=== PATIENT | female | born 1995 | race African-American/Black ===

== ENCOUNTER 2021-10-22 17:54 | Emergency (ER) | payer SELFPAY ==
[~2021-10-22] VITALS: Ht 160 cm; Wt 58.0 kg
[2021-10-22] MEDS ORDERED: HYDROMORPHONE HCL 4MG TABLET PO ONE (18:45)
[2021-10-22] MEDS ORDERED: MORPHINE SULFATE 4 MG/ML CPJ (NOT FOR IM USE) IV NR (18:45)
[2021-10-22] MEDS ORDERED: MORPHINE SULFATE 4 MG/ML CPJ (NOT FOR IM USE) IV ONE ×2 (18:45→23:45)
[2021-10-22] MEDS ORDERED: SODIUM CHLORIDE 0.9% 1,000 ML IV ONE (18:45)
[2021-10-22 19:57] LABS: CHLORIDE 113 mEq/L (98-107)
[2021-10-22 20:42] LABS: BASOPHILS % 0.4 % (0.0-2.0); EOSINOPHILS % 1.9 % (0.0-5.0); HEMATOCRIT. 26.3 % (36.0-48.0); HEMOGLOBIN. 8.5 g/dL (12.0-16.0); LYMPHOCYTES % 24.4 % (20.0-50.0); MEAN CORPUSCULAR HEMOGLOBIN 22.2 pg (28.0-32.0); MEAN CORPUSCULAR VOLUME 68.5 fL (81.0-99.0); MEAN PLATELET VOLUME 9.2 fl (7.4-10.4); MONOCYTES % 7.8 % (2.0-8.0); NEUTROPHILS % 65.5 % (40.0-76.0); PLATELET 981 x1000/uL (130-400); RED BLOOD CELL COUNT 3.84 mill/uL (4.2-5.4); RED CELL DISTRIBUTION WIDTH 36.9 % (11.6-14.6)
[2021-10-22] MEDS ORDERED: DIPHENHYDRAMINE 50MG/ML VIAL IV ONE (22:30)
[2021-10-22 23:00] LABS: PLATELET ESTIMATE MARKEDLY INCREASED
[2021-10-22] MEDS ORDERED: ONDANSETRON HCL 4MG/2ML INJ IV ONE (23:00)
[2021-10-23 01:04] VITALS: BP 110/65
== END 2021-10-23 01:06 | disposition home or self-care (01) ==
LOC: ER 17:54
DX: D57.00 Hb-SS disease with crisis, unspecified (principal); Z86.73 Personal history of transient ischemic attack (TIA), and cerebral infarction without residual deficits; Z90.49 Acquired absence of other specified parts of digestive tract; Z98.890 Other specified postprocedural states
CPT/HCPCS: 36415; 71045; 80053; 81025; 85025; 85651; 85660; 93005; 96361; 96374; 96375; 96376; 99285; J1200; J2270; J2405; J7030

== ENCOUNTER 2022-01-04 15:37 | Emergency (ER) | payer OTHER ==
[~2022-01-04] VITALS: Ht 160 cm; Wt 60.0 kg
[2022-01-04] MEDS ORDERED: ONDANSETRON HCL 4MG/2ML INJ IV STA (19:59)
[2022-01-04] MEDS ORDERED: MORPHINE SULFATE 4 MG/ML CPJ (NOT FOR IM USE) IV STA (19:59)
[2022-01-04] MEDS ORDERED: SODIUM CHLORIDE 0.9% 1,000 ML IV ONE (20:00)
[2022-01-04] MEDS ORDERED: DIPHENHYDRAMINE 50MG/ML VIAL IV ONE (20:00)
[2022-01-04 21:19] LABS: BASOPHILS % 0.5 % (0.0-2.0); EOSINOPHILS % 1.7 % (0.0-5.0); HEMATOCRIT. 28.4 % (36.0-48.0); HEMOGLOBIN. 9.3 g/dL (12.0-16.0); LYMPHOCYTES % 29.3 % (20.0-50.0); MEAN CORPUSCULAR HEMOGLOBIN 20.3 pg (28.0-32.0); MEAN CORPUSCULAR VOLUME 61.8 fL (81.0-99.0); MEAN PLATELET VOLUME 9.1 fl (7.4-10.4); MONOCYTES % 7.2 % (2.0-8.0); NEUTROPHILS % 61.3 % (40.0-76.0); RED BLOOD CELL COUNT 4.59 mill/uL (4.2-5.4); RED CELL DISTRIBUTION WIDTH 39.4 % (11.6-14.6)
[2022-01-04 21:25] LABS: CHLORIDE 108 mEq/L (98-107)
[2022-01-04 21:30] LABS: PLATELET 1606 x1000/uL (130-400)
[2022-01-04 21:59] LABS: PLATELET ESTIMATE MARKEDLY INCREASED
[2022-01-04] MEDS ORDERED: MORPHINE SULFATE 4 MG/ML CPJ (NOT FOR IM USE) IV NR (22:15)
[2022-01-04 23:16] LABS: CLARITY URINE CLEAR (CLEAR); COLOR URINE YELLOW (YELLOW); KETONES URINE NEGATIVE (NEGATIVE); LEUKOCYTE ESTERASE URINE NEGATIVE (NEGATIVE); NITRITE URINE NEGATIVE (NEGATIVE); OCCULT BLOOD URINE NEGATIVE (NEGATIVE); PROTEIN URINE NEGATIVE (NEGATIVE)
[2022-01-04 23:45] VITALS: BP 121/83
== END 2022-01-04 23:45 | disposition left against medical advice (07) ==
LOC: ER 15:37
DX: D57.00 Hb-SS disease with crisis, unspecified (principal); D63.8 Anemia in other chronic diseases classified elsewhere; Z86.73 Personal history of transient ischemic attack (TIA), and cerebral infarction without residual deficits; Z86.718 Personal history of other venous thrombosis and embolism; Z96.659 Presence of unspecified artificial knee joint; Z90.49 Acquired absence of other specified parts of digestive tract; Z96.641 Presence of right artificial hip joint; Z79.01 Long term (current) use of anticoagulants; Z88.8 Allergy status to other drugs, medicaments and biological substances; Z88.3 Allergy status to other anti-infective agents
CPT/HCPCS: 36415; 71045; 80053; 81003; 84484; 85025; 85044; 96361; 96374; 96375; 96376; 99284; J1200; J2270; J2405; J7030

== ENCOUNTER 2022-01-08 21:48 | Inpatient (IN) | payer MEDICAID, OTHER ==
[~2022-01-08] VITALS: Ht 132.1 cm; Wt 58.5 kg
[2022-01-09] MEDS ORDERED: DIPHENHYDRAMINE 50MG/ML VIAL IV ONE (00:15)
[2022-01-09] MEDS ORDERED: MORPHINE SULFATE 4 MG/ML CPJ (NOT FOR IM USE) IV STA (00:15)
[2022-01-09] MEDS ORDERED: SODIUM CHLORIDE 0.9% 1,000 ML IV ONE (00:15)
[2022-01-09] MEDS ORDERED: ONDANSETRON HCL 4MG/2ML INJ IV STA (00:15)
[2022-01-09 00:32] LABS: BASOPHILS % 1.6 % (0.0-2.0); EOSINOPHILS % 3.5 % (0.0-5.0); HEMATOCRIT. 25.6 % (36.0-48.0); HEMOGLOBIN. 8.6 g/dL (12.0-16.0); LYMPHOCYTES % 31.4 % (20.0-50.0); MEAN CORPUSCULAR HEMOGLOBIN 21.3 pg (28.0-32.0); MEAN CORPUSCULAR VOLUME 63.3 fL (81.0-99.0); MEAN PLATELET VOLUME 9.1 fl (7.4-10.4); MONOCYTES % 7.8 % (2.0-8.0); NEUTROPHILS % 55.7 % (40.0-76.0); RED BLOOD CELL COUNT 4.04 mill/uL (4.2-5.4); RED CELL DISTRIBUTION WIDTH 39.2 % (11.6-14.6)
[2022-01-09 00:38] LABS: CHLORIDE 105 mEq/L (98-107)
[2022-01-09 00:43] LABS: PLATELET 1390 x1000/uL (130-400)
[2022-01-09] MEDS ORDERED: MORPHINE SULFATE 4 MG/ML CPJ (NOT FOR IM USE) IV ONE (02:30)
[2022-01-09] MEDS ORDERED: HYDROCODONE/ACETAMINOPHEN 10/325MG TABLET PO PRN (08:30)
[2022-01-09] MEDS ORDERED: MORPHINE SULFATE 2 MG/ML CPJ (NOT FOR IM USE) IV NR (08:48)
[2022-01-09] MEDS ORDERED: HYDROCODONE/ACETAMINOPHEN 10/325MG TABLET PO NR (08:48)
[2022-01-09] MEDS: FOLIC ACID 1MG TABLET PO SCH (09:10)
[2022-01-09] MEDS: ONDANSETRON HCL 4MG/2ML INJ IV PRN (09:10)
[2022-01-09] MEDS: SODIUM CHLORIDE 0.9% 1,000 ML IV SCH ×2 (09:19→21:50)
[2022-01-09] MEDS ORDERED: DIPHENHYDRAMINE 25MG CAPSULE PO PRN (10:00)
[2022-01-09] MEDS ORDERED: HYDROMORPHONE HCL/PF 2MG/ML CPJ IV SCH (11:00)
[2022-01-09] MEDS ORDERED: DIPHENHYDRAMINE 50MG/ML VIAL IV NR (11:45)
[2022-01-09] MEDS ORDERED: HYDROMORPHONE HCL/PF 2MG/ML CPJ IV ONE (16:45)
[2022-01-09] MEDS ORDERED: NALOXONE HCL 0.4MG/ML VIAL IV PRN (20:15)
[2022-01-10] MEDS: HYDROMORPHONE HCL/PF 2MG/ML CPJ IV PRN ×4 (00:20→20:18)
[2022-01-10] MEDS: DIPHENHYDRAMINE 50MG/ML VIAL IV PRN ×2 (00:21→10:01)
[2022-01-10 09:00] VITALS: BP 103/54
[2022-01-10] MEDS: FOLIC ACID 1MG TABLET PO SCH (10:12)
[2022-01-10 10:19] VITALS: BP 103/54
[2022-01-10] MEDS ORDERED: HYDROMORPHONE HCL/PF 2MG/ML CPJ IV PRN (11:00)
[2022-01-10] MEDS ORDERED: OXYCODONE HCL/ACETAMINOPHEN 5/325MG TABLET PO PRN (11:00)
[2022-01-10] MEDS: SODIUM CHLORIDE 0.9% 1,000 ML IV SCH (11:10)
[2022-01-10] MEDS ORDERED: HYDR500C18 PO (11:15)
[2022-01-10] MEDS ORDERED: LOV60 SQ (11:15)
[2022-01-10] MEDS ORDERED: ASPI-1406 PO (11:15)
[2022-01-10 12:00] VITALS: BP 97/49
[2022-01-10 16:00] VITALS: BP 105/55
[2022-01-10] MEDS ORDERED: DIPHENHYDRAMINE 25MG CAPSULE PO PRN (16:00)
[2022-01-10 18:01] LABS: CLARITY URINE CLEAR (CLEAR); COLOR URINE YELLOW (YELLOW); KETONES URINE NEGATIVE (NEGATIVE); LEUKOCYTE ESTERASE URINE NEGATIVE (NEGATIVE); NITRITE URINE NEGATIVE (NEGATIVE); OCCULT BLOOD URINE NEGATIVE (NEGATIVE); PROTEIN URINE NEGATIVE (NEGATIVE); SPECIFIC GRAVITY URINE 1.007 (1.005-1.030)
[2022-01-10 20:00] VITALS: BP 126/69
[2022-01-11] VITALS: BP 119/64
[2022-01-11] MEDS: HYDROMORPHONE HCL/PF 2MG/ML CPJ IV PRN ×5 (00:24→21:59)
[2022-01-11] MEDS: SODIUM CHLORIDE 0.9% 1,000 ML IV SCH ×2 (00:25→20:17)
[2022-01-11 04:00] VITALS: BP 107/52
[2022-01-11 08:00] VITALS: BP 106/68
[2022-01-11] MEDS: FOLIC ACID 1MG TABLET PO SCH (08:50)
[2022-01-11 12:00] VITALS: BP 112/63
[2022-01-11 16:00] VITALS: BP 110/66
[2022-01-11 20:18] VITALS: BP 108/62
[2022-01-12 00:30] VITALS: BP 89/51
[2022-01-12] MEDS: HYDROMORPHONE HCL/PF 2MG/ML CPJ IV PRN ×3 (02:19→09:52)
[2022-01-12] MEDS: SODIUM CHLORIDE 0.9% 1,000 ML IV SCH (06:00)
[2022-01-12 08:00] VITALS: BP 100/48
[2022-01-12] MEDS: FOLIC ACID 1MG TABLET PO SCH (09:28)
[2022-01-12 12:00] VITALS: BP 105/61
[2022-01-12] MEDS ORDERED: HYDROCODONE/ACETAMINOPHEN 10/325MG TABLET PO PRN (12:45)
[2022-01-12] MEDS: ONDANSETRON HCL 4MG/2ML INJ IV PRN (14:05)
[2022-01-12 14:36] VITALS: BP 105/61
[2022-01-12 16:00] VITALS: BP 110/65
== END 2022-01-12 15:37 | disposition home or self-care (01) | DRG 662 ==
LOC: ER 21:48 → MICUSO 01-09 03:31 → 6EST 01-10 07:26
PROVIDERS: ADMIT Internal Medicine; ATTEND Internal Medicine
DX: D57.00 Hb-SS disease with crisis, unspecified (principal); E83.51 Hypocalcemia; R74.01 Elevation of levels of liver transaminase levels; Z96.659 Presence of unspecified artificial knee joint; Z90.49 Acquired absence of other specified parts of digestive tract; Z86.718 Personal history of other venous thrombosis and embolism; Z86.711 Personal history of pulmonary embolism; Z88.1 Allergy status to other antibiotic agents; Z88.8 Allergy status to other drugs, medicaments and biological substances; Z86.73 Personal history of transient ischemic attack (TIA), and cerebral infarction without residual deficits
CPT/HCPCS: 36415; 71045; 80053; 81003; 83605; 85025; 85044; 99285; J1170; J1200; J2270; J2405; J7030; Q0163